=== PATIENT | male | born 1940 | race Caucasian/White ===

== ENCOUNTER 2021-11-22 04:31 | Emergency (ER) | payer MEDICARE ==
[~2021-11-22] VITALS: Ht 177.8 cm; Wt 105.7 kg
[2021-11-22 06:25] LABS: BASOPHILS % (AUTO) 0.6 % (0.0-5.0); EOSINOPHILS % (AUTO) 2.6 % (0.0-8.0); LYMPHOCYTES % (AUTO) 35.2 % (21.0-51.0); MEAN CORPUSCULAR HGB CONC 33.6 g/dL (32.0-36.0); MEAN CORPUSCULAR VOLUME 98.2 fL (79-99); MONOCYTES % (AUTO) 9.7 % (3.0-13.0); NEUTROPHILS % (AUTO) 51.6 % (40.0-77.0); PLATELET COUNT (AUTO) 141 K/uL (130-400); RED BLOOD CELL COUNT(AUTO) 3.97 MIL/uL (4.50-6.20); RED CELL DISTRIBUTION WIDTH 12.4 % (11.0-15.5); WHITE BLOOD COUNT (AUTO) 6.4 K/uL (4.8-10.8)
[2021-11-22 06:37] LABS: ALBUMIN 3.5 g/dL (3.5-5.0); BILIRUBIN,TOTAL 0.4 mg/dL (0.2-1.0); CREATININE 1.3 mg/dL (0.5-1.5); MAGNESIUM 2.1 mg/dL (1.80-2.40); POTASSIUM 3.9 mmol/L (3.5-5.1); TOTAL PROTEIN, SERUM 6.6 g/dL (6.0-8.3)
[2021-11-22 06:46] LABS: B-TYPE NATRIURETIC PEPTIDE 274 pg/mL (0-100)
[2021-11-22 08:20] VITALS: BP 149/81
== END 2021-11-22 08:29 | disposition home or self-care (01) ==
LOC: EDH 04:31
DX: I48.91 Unspecified atrial fibrillation (principal); I10 Essential (primary) hypertension; E78.00 Pure hypercholesterolemia, unspecified; Z95.0 Presence of cardiac pacemaker
CPT/HCPCS: 36415; 71045; 80053; 82550; 83735; 83880; 84484; 85025; 85378; 93005